=== PATIENT | male | born 1960 | race Caucasian/White ===

== ENCOUNTER 2018-11-29 09:46 | Observation (INO) | payer OTHER ==
--- NOTE | 2018-11-29 10:07 | EDPHY ---
H & P Stated Complaint: epigastric pain Time Seen by Provider: 11/29/18 10:07 HPI/ROS: HPI: This is a 57-year-old male who presents with Chief Complaint: Epigastric pain Location: Epigastric Quality: Pain Duration: Since Monday Signs and Symptoms: no fever, + nausea, no vomiting, no hematemesis, no blood in stool, no abdominal bloating, no diarrhea, no back pain, no urinary symptoms , no testicular/groin pain, no indigestion, no chest pain, no shortness of breath, + indigestion Timing: Gradual onset, constant Severity: Moderate Context: Patient reports that he normally smokes marijuana 3-5 times per week and went on vacation last week and not smoked for over 1 week when he returned home on Monday had a large meal and then smoked marijuana. He reports that within 30 min to 1 hr he started to developed burning epigastric pain that was nonradiating in nature. He reports that the pain has continued and has not subsided. No prior history of GERD, coronary artery disease. Patient is wondering if this is related to daily marijuana use. Denies chest pain, shortness of breath, vomiting, diarrhea. Has never noted food intolerance is in the past. Has had a poor appetite over the last few days. Patient reports he has a history of left bundle-branch block and in 05/11/2016 he had a left heart coronary catheterization by Dr. Durand that showed presence of 30% stenosis in the proximal to mid LAD as well as luminal irregularities consistent with atherosclerosis in the left circumflex. EF was 50%. Patient reports that he was discharged on aspirin and statin but stopped taking him after his prescription ran out. Modifying Factors: None Comment: ROS: A comprehensive 10 system review of systems is otherwise negative aside from elements mentioned in the history of present illness. MEDICAL/SURGICAL/SOCIAL HISTORY: Medical history: CAD, LBBB. Surgical history: Tonsillectomy. Knee arthroscopy. Social history: 3-5 times per week marijuana use. Employed. Regular alcohol use. Family history noncontributory. CONSTITUTIONAL: Well-developed, well-nourished middle-aged white male, awake and alert, no obvious distress HEENT: Atraumatic and normocephalic, PERRL, EOMI. Nares patent; no rhinorrhea; no nasal mucosal edema. Tympanic membranes clear. Oropharynx clear, no exudate and moist pink mucosa. Airway patent. No lymphadenopathy. No meningismus. Cardiovascular: Normal S1/S2, regular rate, regular rhythm, without murmur rub or gallop. PULMONARY/CHEST: Symmetrical and nontender. Clear to auscultation bilaterally. Good air movement. No accessory muscle usage. ABDOMEN: Soft, nondistended, moderate right upper quadrant and epigastric tenderness, no rebound, no guarding, no peritoneal signs, no masses or organomegaly. No CVAT. EXTREMITIES: 2/2 pulses, strength 5/5, no deformities, no clubbing, no cyanosis or edema. NEUROLOGICAL: no focal neuro deficits. GCS 15. SKIN: Warm and dry, no erythema. no rash. Good capillary refill. Source: Patient Exam Limitations: No limitations - Personal History Current Tetanus/Diphtheria Vaccine: Unsure Current Tetanus Diphtheria and Acellular Pertussis (TDAP): Unsure - Medical/Surgical History Hx Asthma: No Hx Chronic Respiratory Disease: No Hx Diabetes: No Hx Cardiac Disease: Yes Hx Renal Disease: No Hx Cirrhosis: No Hx Alcoholism: No Hx HIV/AIDS: No Hx Splenectomy or Spleen Trauma: No Other PMH: TONSILECTOMY/KNEE - Social History Smoking Status: Former smoker Constitutional: Initial Vital Signs Temperature (C) 37.5 C 11/29/18 09:49 Heart Rate 96 11/29/18 09:49 Respiratory Rate 16 11/29/18 09:49 Blood Pressure 160/98 H 11/29/18 09:49 O2 Sat (%) 96 11/29/18 09:49 O2 Delivery Mode Room Air Allergies/Adverse Reactions: No Known Allergies Allergy (Unverified 11/29/18 09:49) Home Medications: Medication Instructions Recorded NK [No Known Home Meds] 10/24/14 Medical Decision Making - Diagnostics Imaging Results: Imaging Impressions Abdomen Ultrasound 11/29/18 10:18 Impression: 1. Dilated gallbladder with mild wall thickening containing stones and sludge. 1.5 cm stone is fixed in the gallbladder neck. 2. No free fluid or common bile duct stone. Findings discussed with Emergency Department physician certified medical technician assistant, Katarina Velasquez on 11/29/2018, 11:24. ED Course/Re-evaluation: Vital signs reviewed and show elevated blood pressure upon arrival. IV access, laboratory studies, EKG, right upper quadrant ultrasound ordered Given 1 L normal saline, IV Protonix, GI cocktail 1100: Labs reviewed. No signs of leukocytosis/anemia/platelet dysfunction/PRERNA/ elevated LFTs/electrolyte imbalance/pancreatitis. Mildly elevated T bili and unconjugated bili. 1102: Urinalysis shows 1+ blood but no signs of infection. 1112: EKG my read with attending shows normal sinus rhythm with a rate of 64 beats per minute and left bundle-branch block. When compared to last EKG February 17, 2016 and no changes noted. Patient has known left bundle branch block. 1124: Called by Dr. Gilbert who reports that ultrasound shows a stone in the neck of the gallbladder as well as a large mobile stone, sludge, thickened wall , distended to 4.5 cm with tiny free fluid at the liver edge. No common bile duct stone. He did show stones on the CT in 2014. Patient made NPO. 1125: ED decision to consult General surgery. Spoke with Dr. Altman who kindly agrees to admit patient and perform cholecystectomy. Requests IV cefoxitin 2 g be given. This patient was seen under the supervision of my secondary supervising physician. I evaluated care for this patient independently. Discussed this patient with Dr. Alcantara who did not see the patient. Differential Diagnosis: Abdominal pain including but not limited to appendicitis, cholecystitis, gastritis and urinary tract infection. - Data Points Laboratory Results: Laboratory Results 11/29/18 10:22 11/29/18 10:22 11/29/18 11/29/18 11/29/18 11:06 10:22 10:22 WBC 7.00 10^3/uL 10^3/uL (3.80-9.50) RBC 5.05 10^6/uL 10^6/uL (4.40-6.38) Hgb 16.3 g/dL g/dL (13.7-17.5) Hct 46.0 % % (40.0-51.0) MCV 91.1 fL fL (81.5-99.8) MCH 32.3 pg pg (27.9-34.1) MCHC 35.4 g/dL g/dL (32.4-36.7) RDW 12.4 % % (11.5-15.2) Plt Count 190 10^3/uL 10^3/uL (150-400) MPV 9.3 fL fL (8.7-11.7) Neut % (Auto) 64.0 % % (39.3-74.2) Lymph % (Auto) 27.0 % % (15.0-45.0) [place] % (Auto) 8.0 % % (4.5-13.0) Eos % (Auto) 0.3 % L % (0.6-7.6) Baso % (Auto) 0.3 % % (0.3-1.7) Nucleat RBC Rel Count 0.0 % % (0.0-0.2) Absolute Neuts (auto) 4.48 10^3/uL 10^3/uL (1.70-6.50) Absolute Lymphs (auto) 1.89 10^3/uL 10^3/uL (1.00-3.00) Absolute Monos (auto) 0.56 10^3/uL 10^3/uL (0.30-0.80) Absolute Eos (auto) 0.02 10^3/uL L 10^3/uL (0.03-0.40) Absolute Basos (auto) 0.02 10^3/uL 10^3/uL (0.02-0.10) Absolute Nucleated RBC 0.00 10^3/uL 10^3/uL (0-0.01) Immature Gran % 0.4 % % (0.0-1.1) Immature Gran # 0.03 10^3/uL 10^3/uL (0.00-0.10) Sodium 138 mEq/L mEq/L (135-145) Potassium 3.8 mEq/L mEq/L (3.5-5.2) Chloride 106 mEq/L mEq/L (97-110) Carbon Dioxide 24 mEq/l mEq/l (22-31) Anion Gap 8 mEq/L mEq/L (6-14) BUN 12 mg/dL mg/dL (7-23) Creatinine 0.9 mg/dL mg/dL (0.7-1.3) Estimated GFR > 60 Glucose 176 mg/dL H mg/dL (70-100) Calcium 9.5 mg/dL mg/dL (8.5-10.4) Total Bilirubin 1.6 mg/dL H mg/dL (0.1-1.4) Conjugated Bilirubin 0.3 mg/dL mg/dL (0.0-0.5) Unconjugated Bilirubin 1.3 mg/dL H mg/dL (0.0-1.1) AST 21 IU/L IU/L (17-59) ALT 32 IU/L IU/L (21-72) Alkaline Phosphatase 94 IU/L IU/L (38-126) POC Troponin I 0.01 ng/mL ng/mL (0.00-0.08) Total Protein 7.2 g/dL g/dL (6.3-8.2) Albumin 4.4 g/dL g/dL (3.5-5.0) Lipase 121 IU/L IU/L (23-300) Urine Color Urine Appearance Urine pH Ur Specific [place] Urine Protein Urine Ketones Urine Blood Urine Nitrate Urine Bilirubin Urine Urobilinogen Ur Leukocyte Esterase Urine RBC Urine WBC Ur Epithelial Cells Urine Glucose 11/29/18 10:00 WBC RBC Hgb Hct MCV MCH MCHC RDW Plt Count MPV Neut % (Auto) Lymph % (Auto) [place] % (Auto) Eos % (Auto) Baso % (Auto) Nucleat RBC Rel Count Absolute Neuts (auto) Absolute Lymphs (auto) Absolute Monos (auto) Absolute Eos (auto) Absolute Basos (auto) Absolute Nucleated RBC Immature Gran % Immature Gran # Sodium Potassium Chloride Carbon Dioxide Anion Gap BUN Creatinine Estimated GFR Glucose Calcium Total Bilirubin Conjugated Bilirubin Unconjugated Bilirubin AST ALT Alkaline Phosphatase POC Troponin I Total Protein Albumin Lipase Urine Color YELLOW Urine Appearance CLEAR Urine pH 5.0 (5.0-7.5) Ur Specific [place] 1.009 (1.002-1.030) Urine Protein NEGATIVE (NEGATIVE) Urine Ketones NEGATIVE (NEGATIVE) Urine Blood 1+ H (NEGATIVE) Urine Nitrate NEGATIVE (NEGATIVE) Urine Bilirubin NEGATIVE (NEGATIVE) Urine Urobilinogen NEGATIVE EU EU (0.2-1.0) Ur Leukocyte Esterase NEGATIVE (NEGATIVE) Urine RBC NONE SEEN /hpf /hpf (0-3) Urine WBC 1-3 /hpf /hpf (0-3) Ur Epithelial Cells NONE SEEN /lpf /lpf (NONE-1+) Urine Glucose NEGATIVE (NEGATIVE) Medications Given: Discontinued Medications Al Hydroxide/Mg Hydroxide (Maalox Susp) 30 ml PO ONCE ONE Stop: 11/29/18 10:18 Last Admin: 11/29/18 10:29 Dose: 30 ml Hyoscyamine Sulfate (Levsin, Hyomax-Sl) 0.25 mg PO ONCE ONE Stop: 11/29/18 10:18 Last Admin: 11/29/18 10:31 Dose: 0.25 mg Sodium Chloride (Ns) 1,000 mls @ 0 mls/hr IV EDNOW ONE; Wide Open PRN Reason: Protocol Stop: 11/29/18 10:18 Last Admin: 11/29/18 10:29 Dose: 1,000 mls Lidocaine (Lidocaine 2% Viscous) 15 ml PO ONCE ONE Stop: 11/29/18 10:18 Last Admin: 11/29/18 10:29 Dose: 15 ml Pantoprazole Sodium (Protonix) 40 mg IVP ONCE ONE Stop: 11/29/18 10:18 Last Admin: 11/29/18 10:29 Dose: 40 mg Point of Care Test Results: Chemistry 11/29/18 11:06 POC Troponin I 0.01 ng/mL ng/mL (0.00-0.08) Departure - Departure Disposition: [facility] Inpatient Acute Clinical Impression: Left bundle branch block (LBBB) on electrocardiogram Cholelithiasis with acute cholecystitis Qualifiers: Biliary obstruction: without biliary obstruction Qualified Code(s): K80.00 - Calculus of gallbladder with acute cholecystitis without obstruction Condition: Fair
[2018-11-29] MEDS ORDERED: LIDOCAINE 2% VISCOUS 15 ML UDCUP PO ONE (10:17)
[2018-11-29] MEDS ORDERED: MAG HYDROX/AL HYDROX/SIMETH 30 ML UDCUP PO ONE (10:17)
[2018-11-29] MEDS ORDERED: NS 1,000 ML IV ONE (10:17)
[2018-11-29] MEDS ORDERED: PANTOPRAZOLE SODIUM 40 MG VIAL IVP ONE (10:17)
[2018-11-29] MEDS ORDERED: HYOSCYAMINE SULFATE 0.125 MG TAB PO ONE (10:17)
[2018-11-29] MEDS ORDERED: HYOSCYAMINE SULFATE 0.125 MG TAB ONE (10:30)
[2018-11-29 10:42] LABS: PLATELET COUNT 190 10^3/uL (150-400)
[2018-11-29] MEDS ORDERED: cefOXitin SODIUM 2 GM in NS 100 ML IV ONE (11:26)
--- NOTE | 2018-11-29 14:36 | CPEKG ---
Test Reason : OPEN Blood Pressure : / mmHG Vent. Rate : 064 BPM Atrial Rate : 064 BPM P-R Int : 170 ms QRS Dur : 153 ms QT Int : 463 ms P-R-T Axes : 038 -45 105 degrees QTc Int : 478 ms Sinus rhythm Left bundle branch block Confirmed by Yesenia Vargas ([id number]) on 11/29/2018 2:36:11 PM Referred By: YESENIA VARGAS Confirmed By:Yesenia Vargas
[2018-11-29] MEDS ORDERED: HYDROmorphONE/DILAUDID 1 MG/ML INJ IVP PRN ×2 (15:06→21:47)
[2018-11-29] MEDS ORDERED: ONDANSETRON 4 MG/2 ML VIAL IVP PRN ×3 (15:07→21:47)
[2018-11-29] MEDS ORDERED: LR 1,000 ML IV ONE (16:44)
[2018-11-29] MEDS ORDERED: HEPARIN 1000 UNIT/1 ML MDV ONE ×2 (17:38→19:03)
[2018-11-29] MEDS ORDERED: cefOXitin SODIUM 1 GM in NS 50 ML IV SCH (18:00)
[2018-11-29] MEDS ORDERED: IOPAMIDOL (ISOVUE-M 300) 15 ML VIAL ONE (18:02)
[2018-11-29] MEDS ORDERED: HYDROmorphONE/DILAUDID 2 MG/ML INJ ONE (18:19)
[2018-11-29] MEDS ORDERED: HYDROmorphONE/DILAUDID 2 MG/ML INJ IVP PRN ×2 (18:30→20:55)
--- NOTE | 2018-11-29 18:46 | PDANEPAE ---
ANE History of Present Illness cholelithiasis here for lap bridget CANDIS Past Medical History - Cardiovascular History Hx Hypertension: No Hx Arrhythmias: Yes Hx Chest Pain: No Hx Coronary Artery / Peripheral Vascular Disease: No Cardiovascular History Comment: LBBB - Pulmonary History Hx COPD: No Hx Asthma/Reactive Airway Disease: No Hx Recent Upper Respiratory Infection: No Hx Oxygen in Use at Home: No Hx Sleep Apnea: Yes Sleep Apnea Screening Result - Last Documented: Positive - Endocrine History Hx Diabetes: No ANE Review of Systems Review of Systems: - Exercise capacity METS (RN): 4 METS ANE Patient History - Allergies Allergies/Adverse Reactions: No Known Allergies Allergy (Verified 11/29/18 11:45) - Home Medications Home Medications: NK [No Known Home Meds] 10/24/14 [Last Taken Unknown] - NPO status NPO Status: no food or drink >8 hours NPO Since - Liquids (Date): 11/29/18 NPO Since - Liquids (Time): 09:00 NPO Since - Solids (Date): 11/29/18 NPO Since - Solids (Time): 09:00 - Anes Hx Anes Hx: no prior problems - Smoking Hx Smoking Status: Former smoker - Alcohol Use Alcohol Use: Occasionally - Family Anes Hx Family Anes Hx: none ANE Labs/Vital Signs - Labs Result Diagrams: 11/29/18 10:22 11/29/18 10:22 - Vital Signs Blood Pressure: 131/90 Heart Rate: 77 Respiratory Rate: 18 O2 Sat (%): 95 Height: 175.26 cm Weight: 95.254 kg ANE Physical Exam - Airway Neck exam: FROM Mallampati Score: Class 2 Mouth exam: normal dental/mouth exam Mouth image: 1 - chipped 2 - missing - Pulmonary Pulmonary: no respiratory distress, clear to auscultation - Cardiovascular Cardiovascular: regular rate and rhythym, no murmur, rub, or gallop - ASA Status ASA Status: II ANE Anesthesia Plan Anesthesia Plan: general endotracheal anesthesia
[2018-11-29] MEDS ORDERED: MIDAZOLAM 2 MG/2 ML VIAL IVP ONE (18:47)
[2018-11-29] MEDS ORDERED: PROPOFOL 200 MG/20 ML VIAL ONE (18:52)
[2018-11-29] MEDS ORDERED: LIDOCAINE 2% 100 MG/5 ML SYR ONE (18:52)
[2018-11-29] MEDS ORDERED: fentaNYL 100 MCG/2 ML INJ ONE ×2 (18:52→20:12)
[2018-11-29] MEDS ORDERED: ROCURONIUM 100 MG/10 ML VIAL ONE (18:53)
[2018-11-29] MEDS ORDERED: BUPIVACAINE 0.5% 30 ML SDV ONE (19:03)
[2018-11-29] MEDS ORDERED: ceFAZolin 1 GM/5 ML SYR ONE (19:04)
[2018-11-29] MEDS ORDERED: SUGAMMADEX SODIUM 200 MG/2 ML VIAL IVP ONE (20:40)
[2018-11-29] MEDS ORDERED: KETOROLAC 30 MG/1 ML SDV ONE (20:40)
[2018-11-29] MEDS ORDERED: oxyCODONE IR 5 MG TAB PO PRN (20:55)
[2018-11-29] MEDS ORDERED: NALOXONE HCL 0.4 MG/ML INJ IVP PRN (20:55)
[2018-11-29] MEDS ORDERED: HYDROCODONE/APAP 5/325 TAB PO PRN (20:55)
[2018-11-29] MEDS ORDERED: ACETAMINOPHEN 500 MG TAB PO PRN (20:55)
[2018-11-29] MEDS ORDERED: PROMETHAZINE HCL 25 MG/ML INJ IVP PRN (20:55)
[2018-11-29] MEDS ORDERED: fentaNYL 100 MCG/2 ML INJ IVP PRN (20:55)
--- NOTE | 2018-11-29 20:56 | POSTANESTH ---
Post Anesthetic Evaluation Cardiovascular Status: Normal, Stable, Similar to Pre-Op Cond Respiratory Status: Normal, Stable, Similar to Pre-op Cond. Level of Consciousness/Mental Status: Can Participate in Eval, Alert and Oriented Pain Control: Adequate, Prn Tx Ordered Nausea/Vomiting Control: Adequate, Prn Tx Ordered Complications Possibly Related to Anesthesia: None Noted
[2018-11-29] MEDS ORDERED: HYDROCODONE/APAP 5/325 TAB ONE (21:29)
--- NOTE | 2018-11-29 21:45 | POSTOPPROG ---
Post Op Note Date of Operation: 11/29/18 Surgeon: Miguel Altman Anesthesiologist: DAREN Anesthesia: GET(General Endotracheal) Pre-op Diagnosis: ACUTE CHOLECYSTITIS Post-op Diagnosis: SAME Indication: PAIN Procedure: LAP CHOLY Findings: ACUTE HYDROPS OF THE GALLBLADDER WITH PURULENCE AND LARGE STONES Inf/Abcess present in the surg proc area at time of surgery?: Yes Depth: Organ Space EBL: Minimal Complications: NONE Specimen(s): GALLBLADDER AND CULTURES
[2018-11-29] MEDS ORDERED: OXYCODONE/APAP 5/325 TAB PO PRN (21:47)
[2018-11-29] MEDS: D5W 1/2 NS W/ 20 KCl/L 1,000 ML IV SCH (22:41)
[2018-11-30] MEDS: cefOXitin SODIUM 1 GM in NS 50 ML IV SCH ×2 (02:49→08:08)
[2018-11-30] MEDS: KETOROLAC 15 MG/1 ML SDV IVP SCH ×2 (02:51→10:35)
[2018-11-30] MEDS: D5W 1/2 NS W/ 20 KCl/L 1,000 ML IV SCH (10:33)
--- NOTE | 2018-11-30 12:02 | SOAPPROG ---
SOAP Progress Note Assessment/Plan: Assessment: 57 y/o M s/p lap bridget with gross purulence found POD #1 S: Feeling well. Pain controlled. Tolerating clears. Passing gas. O: Alert Afebrile VSS RRR No increased WOB Abdomen: soft, attp, +BS, incisions cdi Plan: D/c home today with 5 day course of abx. 11/30/18 12:00 Objective: Vital Signs Temp Pulse Resp BP Pulse Ox 36.9 C 60 16 143/94 H 91 L 11/30/18 08:00 11/30/18 08:00 11/30/18 08:00 11/30/18 08:00 11/30/18 08:00 Microbiology 11/29/18 20:28 Gram Stain - Final Gallbladder - Eswab 11/29/18 11/30/18 12/01/18 05:59 05:59 05:59 Intake Total 2040 Output Total 310 Balance 1730 ICD10 Worksheet Patient Problems: Problems Problem Status Onset Cholelithiasis with acute cholecystitis Acute Left bundle branch block (LBBB) on electrocardiogram Acute
[2018-11-30 12:07] VITALS: BP 139/84
== END 2018-11-30 13:39 | disposition home or self-care (01) ==
LOC: INTOOBSV 11:28 → F3N 13:53
PROVIDERS: ADMIT Surgery; ATTEND Surgery
PROC: 0FT44ZZ Resection of Gallbladder, Percutaneous Endoscopic Approach (ICD-10-PCS; principal; 2018-11-29 17:00)
DX: K80.00 Calculus of gallbladder with acute cholecystitis without obstruction (principal); I44.7 Left bundle-branch block, unspecified; E86.9 Volume depletion, unspecified; I25.10 Atherosclerotic heart disease of native coronary artery without angina pectoris; F12.90 Cannabis use, unspecified, uncomplicated; Z87.891 Personal history of nicotine dependence
CPT/HCPCS: 47562; 76705; 93005; 96361; 96374; 96375; 96376; 99285; G0378; 84484-ER; J0694; J1170; J1642; J1885; J2001; J2250; J2704; J3010; Q9967